=== PATIENT | female | born 1965 | race Caucasian/White ===

== ENCOUNTER 2019-08-26 11:51 | Outpatient (CLI) | payer BC ==
--- NOTE | 2019-08-26 12:48 | RAD ---
EXAM: 2 view cervical spine PROVIDED CLINICAL HISTORY: Back and bilateral hand pain COMPARISON: None FINDINGS: Cervical alignment appears normal. Vertebral body heights and intervertebral disc space heights appea r preserved. No prevertebral soft tissue swelling apparent. The visualized lung apices appear clear. IMPRESSION: Unremarkable cervical spine radiographs.
--- NOTE | 2019-08-26 12:49 | RAD ---
EXAM: XR Sacroiliac Joints >=3 View PROVIDED CLINICAL HISTORY: Back pain COMPARISON: None FINDINGS: The sacroiliac joints appear symmetric in terms of width. There is no periarticular sclerosis or eros ion of the subchondral bone plate evident. No evidence for fracture or other acute osseous abnormality. IMPRESSION: No radiographic evidence for sacroiliitis.
--- NOTE | 2019-08-26 12:58 | RAD ---
THORACIC SPINE 3 VIEWS: INDICATION: Mid back pain. FINDINGS: Thoracic vertebrae maintain normal height and alignment in the lateral view. In the frontal AP proje ction, there is a slight curvature to the left with apex at T11. Disk spaces are preserved. No sign ificant degenerative change. No blastic or lytic process. IMPRESSION: Slight curvature of the thoracolumbar spine to the left. This is no more than 10 degrees. Thoracic spine is otherwise unremarkable. POS: [facility]
== END 2019-08-26 11:52 | disposition home or self-care (01) ==
LOC: SCSRAD 11:51
PROVIDERS: ATTEND Internal Medicine Rheumatology
DX: M54.12 Radiculopathy, cervical region (principal); M54.6 Pain in thoracic spine; M53.3 Sacrococcygeal disorders, not elsewhere classified; M43.8X5 Other specified deforming dorsopathies, thoracolumbar region
CPT/HCPCS: 72050; 72070; 72202